=== PATIENT | female | born 1985 | race African-American/Black ===

== ENCOUNTER 2025-04-21 12:22 | Outpatient (CLI) | payer BC | END 2025-04-21 12:23 | disposition home or self-care (01) | LOC: CSHULT 12:22 | PROVIDERS: ATTEND Family Medicine | DX: N92.6 Irregular menstruation, unspecified (principal) | CPT/HCPCS: 76856; 93976 ==

== ENCOUNTER 2025-04-21 13:46 | Outpatient (CLI) | payer BC | END 2025-04-21 13:47 | disposition home or self-care (01) | LOC: CSHMAMMO 13:46 | PROVIDERS: ATTEND Family Medicine | DX: Z12.31 Encounter for screening mammogram for malignant neoplasm of breast (principal) | CPT/HCPCS: 77063; 77067 ==